=== PATIENT | male | born 1955 | race Caucasian/White ===

== ENCOUNTER → 2024-02-16 07:28 | Outpatient (CLI) | payer MEDICARE, OTHER, SELFPAY ==
[2024-02-16 09:17] LABS: Cholesterol 223 mg/dL (140-199); HDL Cholesterol 46 mg/dL (40-60); LDL Cholesterol Calculated 145 mg/dL (<100); Triglycerides 158 mg/dL (35-150)
== END ==
PROVIDERS: PCP Family Medicine; Referring Provider Family Medicine; Visit Provider Family Medicine
DX: E78.5 Hyperlipidemia, unspecified (principal)
CPT/HCPCS: 36415; 80061

== ENCOUNTER → 2024-04-12 09:04 | Outpatient (CLI) | payer MEDICARE, OTHER, SELFPAY ==
[2024-04-12 11:18] LABS: Alanine Aminotransferase 19 IU/L (<50); Albumin 4.4 g/dL (3.5-5.0); Albumin Globulin Ratio 1.9 (1.0-2.8); Alkaline Phosphatase 56 U/L (38-126); Aspartate Aminotransferase 23 IU/L (17-59); BUN Creatinine Ratio 27.9 (6-22); Bilirubin Total 1.3 mg/dL (0.2-1.3); Blood Urea Nitrogen 36 mg/dL (9-20); Calcium 9.2 mg/dL (8.4-10.2); Carbon Dioxide 28 mmol/L (22-32); Chloride 102 mmol/L (98-107); Cholesterol 199 mg/dL (140-199); Estimated Glomerular Filt Rate 60 mL/min (>60); Globulin 2.3 g/dL (1.7-4.1); Glucose 106 mg/dL (80-110); HDL Cholesterol 45 mg/dL (40-60); HEMOLYSIS < 15 (0-50); LDL Cholesterol Calculated 139 mg/dL (<100); Potassium 4.1 mmol/L (3.4-5.1); Sodium 139 mmol/L (137-145); Total Protein 6.7 g/dL (6.3-8.2); Triglycerides 77 mg/dL (35-150)
== END ==
LOC: LAB 09:06
PROVIDERS: PCP Family Medicine; Referring Provider Family Medicine; Visit Provider Family Medicine
DX: E78.5 Hyperlipidemia, unspecified (principal)
CPT/HCPCS: 36415; 80053; 80061

== ENCOUNTER → 2024-07-18 09:53 | Outpatient (CLI) | payer MEDICARE, OTHER, SELFPAY ==
--- NOTE | 2024-07-18 10:07 | EKG_ITS ---
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
== END ==
PROVIDERS: PCP Family Medicine; Referring Provider Podiatrist; Visit Provider Podiatrist
DX: Z01.818 Encounter for other preprocedural examination (principal)
CPT/HCPCS: 93005

== ENCOUNTER → 2025-01-11 09:21 | Outpatient (CLI) | payer MEDICARE, OTHER, SELFPAY ==
--- NOTE | 2025-01-11 09:22 | DI.RAD.S_ITS ---
PROCEDURE: XR LUMBAR SPINE MIN 4V INDICATIONS: Back pain TECHNIQUE: 5 views of the lumbar spine were acquired, including bilateral oblique views. COMPARISON: None. FINDINGS: Bones: 5 nonrib-bearing vertebrae are present. There is normal bony alignment. No vertebral body compression fractures. No suspicious bony lesions. Diffuse multilevel disc space narrowing with hypertrophic facet joints present particularly in the lower lumbar spine Soft tissues: Overlying bowel gas pattern is normal. No suspicious soft tissue calcifications. Fiducial markers in prostate Oblique images: No pars defects. IMPRESSION: Advanced multilevel degenerative disc disease and arthropathy Approved by: Guzman Sparks M.D. on 01/11/2025 at 10:35
== END ==
PROVIDERS: PCP Family Medicine; Referring Provider Physical Medicine & Rehabilitation; Visit Provider Physical Medicine & Rehabilitation
DX: M51.369 Other intervertebral disc degeneration, lumbar region without mention of lumbar back pain or lower extremity pain (principal); M47.816 Spondylosis without myelopathy or radiculopathy, lumbar region; M79.671 Pain in right foot; M79.672 Pain in left foot
CPT/HCPCS: 72110

== ENCOUNTER 2025-01-11 11:27 | Emergency (ER) | payer MEDICARE, OTHER, SELFPAY ==
[2025-01-11 11:30] VITALS: BP 152/84; PULSE 65; RESP 18; TEMP 37.1; O2SAT 97; BMI 28.8
--- NOTE | 2025-01-11 11:36 | ED.HEATRA ---
HPI - Head Injury General Chief complaint: Head Injury Stated complaint: Hit head a week ago Dizzy Time Seen by Provider: 01/11/25 11:36 Source: patient Mode of arrival: Ambulatory History of Present Illness HPI Narrative: 69-year-old male past medical history of hyperlipidemia, hypertension presenting for dizziness and headache. He states that about a week and a half ago he fell while skiing, states that he did hit his head on the ground but was wearing a helmet, no LOC not on any blood thinners. States that he has been having persistent headache to the right side, also states that he feels dizzy whenever he moves too fast, as well as ?tight/sore neck muscles. But he denies any other symptoms/injuries at this time. Related Data Home Medications Medication Instructions Recorded Confirmed chlorthalidone 25 mg tablet 12.5 mg PO QAM 03/15/24 03/15/24 diltiazem HCl 120 mg 120 mg PO DAILY 03/15/24 03/15/24 capsule,extended release 24 hr (Cartia XT) esomeprazole magnesium 40 mg 40 mg PO DAILY 03/15/24 03/15/24 capsule,delayed release losartan 50 mg tablet 50 mg PO BID 03/15/24 03/15/24 pramipexole 0.5 mg tablet 0.5 mg PO DAILY 03/15/24 03/15/24 rosuvastatin 10 mg tablet 10 mg PO ONCE PM 03/15/24 03/15/24 tamsulosin 0.4 mg capsule 0.4 mg PO DAILY 03/15/24 03/15/24 Previous Rx's Medication Instructions Recorded meclizine 25 mg tablet 25 mg PO BID PRN dizziness 1 week 01/11/25 #14 tabs Allergies Allergy/AdvReac Type Severity Reaction Status Date / Time Sulfa (Sulfonamide Allergy Severe Anaphylaxis Verified 03/15/24 12:48 Antibiotics) Iveojox-TAX-NeQ Reductase Allergy Numbness Verified 01/11/25 11:31 Inhibitor Review of Systems Review of Systems Narrative: General: Denies fever, chills, weight loss HEENT: Denies headache, eye drainage, eye irritation, head trauma, sore throat, voice change Cardiovascular: Denies any chest pain, palpitations, tachycardia Respiratory: Denies any shortness of breath, cough, wheeze, stridor GI/: Denies any abdominal pain, nausea, vomiting, diarrhea, bright red blood per rectum, melanotic stools, urinary frequency, urinary retention, dysuria, hematuria MSK: Denies any joint pain, muscle pains, swelling Skin: Denies any rashes, lesions, discoloration Neuro: Positive headache, dizziness, denies lightheadedness, fainting, weakness Psych: Denies SI/HI Patient History Social History Smoking Status: Never smoker Smoking Status: Never smoker Exam Narrative Exam Narrative: General: Cooperative, well-developed, not in acute distress HEENT: Normocephalic, atraumatic, PERRLA, normal sclera, eyelids normal Neck: Active full range of motion, atraumatic Chest: Normal to inspection, negative crepitus, no overlying erythema ecchymosis Respiratory: Normal respiratory effort, not in acute respiratory distress, clear to auscultation bilaterally negative cough, wheeze, tachypnea, rhonchi, rales Cardiology: Regular rate rhythm negative gallop, murmur, rubs GI/: No tenderness to palpation, soft, non rigid, normal to inspection, exam deferred MSK: Full active range of motion in all 4 extremities, atraumatic, no tenderness to palpation of any bony prominences Skin: No rashes or lesions noted Neuro: NIH of 0 no focal deficits Alert awake oriented x3, moves all 4 extremities spontaneously, cranial nerves intact, able to answer all questions appropriately follows commands appropriately Psych: Cooperative, negative suicidal or homicidal ideations Initial Vital Signs Initial Vital Signs: Vital Signs Temperature 98.7 F 01/11/25 11:30 Pulse Rate 65 01/11/25 11:30 Respiratory Rate 18 01/11/25 11:30 Blood Pressure 152/84 H 01/11/25 11:30 Pulse Oximetry 97 01/11/25 11:30 Oxygen Delivery Method Room Air 01/11/25 11:30 Course Orders Ordered: ED Orders 01/11/25 11:35 CT cervical spine wo con Stat CT head/brain wo con Stat Vital Signs Vital signs: Vital Signs - 8 hr 01/11/25 11:30 Temperature 98.7 F Pulse Rate 65 Respiratory Rate 18 Blood Pressure 152/84 H Pulse Oximetry 97 Oxygen Delivery Method Room Air MDM - Head Injury Differential Diagnosis Differential diagnosis: Likely concussion without loss of consciousness, closed head injury, subarachnoid hematoma, postconcussion syndrome, subdural hematoma and other (Cervical neck strain, cervical neck fracture) Imaging Data CT scan - head: Radiologist's Impression: [address] [address] [address] Scan Report Signed Patient: Ernesto Marrufo MR#: [id number] : 1955 Acct:[id number] Age/Sex: 69 / M Date of Service: 01/11/25 Loc: ED Accession Number: [id number] Procedure: CT head/brain wo con Ordering Provider: Josh Rowley D.O. PROCEDURE: CT HEAD/BRAIN WO CON INDICATIONS: hit head skiing, headache/dizzy TECHNIQUE: Noncontrast 4.5 mm thick angled axial sections acquired from the foramen magnum to the vertex, with coronal and sagittal reformats. For radiation dose reduction, the following was used: automated exposure control, adjustment of mA and/or kV according to patient size. COMPARISON: None. FINDINGS: Image quality: Diagnostic. CSF spaces: Basal cisterns are patent. No extra-axial fluid collections. The ventricles are symmetric in size and shape. Brain: No intracranial bleeds or masses. There is cerebral volume loss for age, with resultant ventricular and sulcal prominence. There are minimal, age-appropriate periventricular and deep white matter chronic small vessel ischemic changes. There is intracranial internal carotid artery atherosclerosis. Skull and face: Calvarium and visualized facial bones appear intact, without suspicious lesions. Sinuses: Visualized sinuses and mastoids are clear. IMPRESSION: No acute intracranial pathology. CT - cervical spine: Radiologist's Impression: [address] [address] [address] Scan Report Signed Patient: Ernesto Marrufo MR#: [id number] : 1955 Acct:[id number] Age/Sex: 69 / M Date of Service: 01/11/25 Loc: ED Accession Number: [id number] Procedure: CT cervical spine wo con Ordering Provider: Josh Rowley D.O. PROCEDURE: CT CERVICAL SPINE WO CON INDICATIONS: hit head skiing, headache/dizzy TECHNIQUE: Noncontrast 3 mm thick sections acquired from the skull base to the T4 level. Sagittal and coronal reformats were then constructed. For radiation dose reduction, the following was used: automated exposure control, adjustment of mA and/or kV according to patient size. COMPARISON: None. FINDINGS: Image quality: Excellent. Bones: No fractures or dislocations. Visualized superior ribs are intact. Cervical spondylosis with disc height loss and uncovertebral joint hypertrophy at C5-C6, C6-C7, and C7-T1. There is bilateral bony foraminal narrowing at these levels. There is canal stenosis at C5-C6 and C6-C7. Soft tissues: Prevertebral soft tissues are normal in thickness. No paravertebral hematomas. No apical pneumothoraces. IMPRESSION: No displaced fracture or traumatic subluxation. Cervical spondylosis. MDM Narrative Medical decision making narrative: 69-year-old male with a history of hypertension, hyperlipidemia, GERD, presenting from home for evaluation of headache dizziness intermittent in nature since a week and a half ago after he fell while skiing. He states that he was wearing his helmet did his his head but denies any LOC not on any blood thinners. Also complaining of soreness/tightness of the right side of his neck. On exam patient is NIH of 0 no focal deficits able to stand bear weight ambulate unassisted, he is neurovascularly intact in bilateral upper and lower extremities. He states that due to persistent/ongoing symptoms decided come into the ED for further evaluation treatment. Patient had CT scan of his head and neck performed here in the emergency department, scans without any acute findings, symptoms more likely concussion like symptoms given head strike, we will send patient home with symptomatic relief, meclizine. Was instructed to follow up with the primary care in outpatient setting, strict return precautions given he verbalized understanding of this and agrees to being discharged home with outpatient follow up Discharge Plan Departure Patient Disposition: Home Clinical Impression: Closed head injury Activity Restrictions/Additional Instructions: Please follow up with primary care doctor Please read the discharge instructions sheet carefully and bring all papers to all doctor follow-up visits, as it may contain information that your doctor may want to see. Disease processes change and evolve, if your symptoms worsen or if you develop any new symptoms that are concerning to you please return for evaluation. Your evaluation today does not show any evidence of any life-threatening/serious illnesses requiring admission to the hospital or surgery. Please follow-up with your doctor for re-evaluation in approximately 1 day. Seek immediate medical attention for any worrisome symptoms. *If you do not have a primary care provider please contact the [facility] Resource line at [phone]. They will ask some questions about your medical history and help get you set up with a doctor in the community. Prescriptions: New meclizine 25 mg tablet 25 mg PO BID PRN (Reason: dizziness) 7 Days Qty: 14 0RF No Action esomeprazole magnesium 40 mg capsule,delayed release(DR/EC) 40 mg PO DAILY rosuvastatin 10 mg tablet 10 mg PO ONCE PM chlorthalidone 25 mg tablet 12.5 mg PO QAM losartan 50 mg tablet 50 mg PO BID diltiazem HCl [Cartia XT] 120 mg capsule,extended release 24hr 120 mg PO DAILY pramipexole 0.5 mg tablet 0.5 mg PO DAILY tamsulosin 0.4 mg capsule 0.4 mg PO DAILY Referrals: Anila Birmingham MD [Primary Care Provider] - Stand Alone Forms: Patient Portal/API/Survey
[2025-01-11 13:03] VITALS: BP 152/94; PULSE 63; RESP 16; TEMP 36.5; O2SAT 97
== END 2025-01-11 13:00 | disposition home or self-care (01) ==
PROVIDERS: Emergency Provider Student in an Organized Health Care Education/Training Program; PCP Family Medicine
DX: S09.8XXA Other specified injuries of head, initial encounter (principal); R42 Dizziness and giddiness; M54.2 Cervicalgia; M51.369 Other intervertebral disc degeneration, lumbar region without mention of lumbar back pain or lower extremity pain; M47.816 Spondylosis without myelopathy or radiculopathy, lumbar region; M79.671 Pain in right foot; M79.672 Pain in left foot; W19.XXXA Unspecified fall, initial encounter; Y93.23 Activity, snow (alpine) (downhill) skiing, snowboarding, sledding, tobogganing and snow tubing
CPT/HCPCS: 70450; 72110; 72125; 99281; 99284

== ENCOUNTER → 2025-01-19 15:45 | Outpatient (CLI) | payer MEDICARE, OTHER, SELFPAY ==
--- NOTE | 2025-01-19 15:47 | DI.MRI.S_ITS ---
PROCEDURE: MR LUMBAR SPINE WO CON INDICATIONS: Lumbar Radic, Bilateral Foot Paresthesias TECHNIQUE: Noncontrast sagittal T1 spin echo and T2 fast echo, sagittal STIR, and T2 fast spin echo through the lumbar spine. In cases with scoliosis, additional coronal T2 fast spin echo may be performed. COMPARISON: [facility], CR, XR LUMBAR SPINE MIN 4V, 01/11/2025, 9:23. FINDINGS: Image quality: Excellent. Alignment and Curvature: There is mild straightening of normal lumbar lordosis. Mild right were curvature of lumbar spine with apex at L2 level is also noted. Bone Marrow: Marrow is of normal overall signal. No acute vertebral body compression fractures. Spinal Cord: Conus medullaris terminates at the L1 level. Visualized cord demonstrates normal signal and size. Paraspinous Soft Tissues: No paravertebral masses. T12-L1: Loss of disc signal and disc height. No significant disc bulge, canal stenosis or neural foraminal narrowing. L1-L2: Loss of disc signal. Mild diffuse disc bulge and bilateral facet arthrosis. No significant central canal stenosis. Mild bilateral neural foraminal narrowing is seen slightly worse on the right side. L2-L3: Loss of disc height and disc signal. Broad-based disc bulge and bilateral facet arthrosis with superimposed right lateral disc herniation causing moderate central canal stenosis, severe right worse than left bilateral neural foraminal narrowing. Bulging disc likely contacting bilateral L2 nerve roots. L3-L4: Near complete loss of disc height and disc desiccation. Broad-based disc bulge and superimposed left lateral disc herniation with bilateral facet arthrosis and hypertrophy of ligamentum flavum causing moderate central canal stenosis and severe left worse than right bilateral neural foraminal narrowing. Bulging disc likely contacting bilateral L3 and L4 nerve roots. L4-L5: Loss of disc height and disc signal. Broad-based disc bulge and bilateral facet arthrosis is seen with [id number] central canal stenosis, severe right-sided neural foraminal narrowing and moderate left-sided neural foraminal narrowing. There is compression of bilateral L4 nerve roots as well as right L5 nerve root. L5-S1: Loss of disc height and disc desiccation. Broad-based disc bulge and bilateral facet arthrosis. No significant central canal stenosis. Mild bilateral neural foraminal narrowing is seen. IMPRESSION: 1. Mild rightward curvature of lumbar spine centered at L2 level. No acute compression fracture or spondylolisthesis. No gross marrow edema. 2. Moderate spondylitic changes throughout lumbar spine causing various degrees of central canal stenosis and bilateral neural foraminal narrowing as described above. 3. No gross paraspinous soft tissue abnormalities. Dictated by: Carmelo Chaudhari M.D. on 01/21/2025 at 19:56 Approved by: Carmelo Chaudhari M.D. on 01/21/2025 at 20:01
== END ==
PROVIDERS: PCP Family Medicine; Referring Provider Physical Medicine & Rehabilitation; Visit Provider Physical Medicine & Rehabilitation
DX: M47.27 Other spondylosis with radiculopathy, lumbosacral region (principal); M47.26 Other spondylosis with radiculopathy, lumbar region; M48.061 Spinal stenosis, lumbar region without neurogenic claudication; M48.07 Spinal stenosis, lumbosacral region; R20.2 Paresthesia of skin
CPT/HCPCS: 72148

== ENCOUNTER → 2025-02-14 12:53 | Outpatient (CLI) | payer MEDICARE, OTHER, SELFPAY ==
--- NOTE | 2025-02-14 12:54 | DI.MRI.S_ITS ---
PROCEDURE: MR KNEE RT WO CON INDICATIONS: internal derangement of right knee TECHNIQUE: Noncontrast sagittal PD fast spin echo and T2 fast spin echo with fat saturation, sagittal 3-D FLASH with fat saturation; coronal T1 spin echo and PD fast spin echo with fat saturation, and axial PD fast spin echo with fat saturation through the knee. COMPARISON: None. FINDINGS: Image quality: Excellent. Menisci: Complex tear involving posterior horn of medial meniscus is seen extending to both superior and inferior articulating surfaces. The lateral meniscus is intact. Cruciate ligaments: Patient is status post prior ACL reconstruction. No signal abnormality is seen within the tibial tunnel or femoral tunnel. ACL graft is intact. The PCL is intact. Medial structures: The medial collateral ligament appears thickened with surrounding soft tissue edema. Visualized portions of the pes anserinus tendons appear normal. No abnormal bursal fluid. Lateral structures: The lateral collateral ligament, long and short heads of the biceps femoris tendon appear intact. The popliteus tendon appears normal. Iliotibial band appears normal. Anterior structures: The quadriceps tendon is intact. Diffusely thickened patellar tendon. No patellar tendon tear. Patellar alignment is normal. Bones and cartilage: Normal right knee alignment without abnormal anterior tibial translation. No bone marrow contusions or fractures. Xigm-[id number] tricompartmental osteoarthritis and chondromalacia is seen. Joint space: There is small knee joint fluid. No Uriostegui's cyst. Normal appearing synovial plicae are incidentally noted. IMPRESSION: 1. Prior ACL reconstruction with postsurgical changes. Anatomic right knee alignment. Mild to moderate tricompartmental osteoarthritis and chondromalacia. No acute fracture or dislocation. Small joint effusion, no loose bodies. 2. Complex tear involving posterior horn of medial meniscus extending to both superior and inferior articulating surfaces. The lateral meniscus is intact. 3. ACL graft is intact. PCL is intact. 4. Patellar tendinosis. Quadriceps tendon is intact. 5. Low-grade MCL sprain/partial-thickness tear. Dictated by: Carmelo Chaudhari M.D. on 02/14/2025 at 14:59 Approved by: Carmelo Chaudhari M.D. on 02/14/2025 at 15:16
== END ==
LOC: MRI 12:54
PROVIDERS: PCP Family Medicine; Referring Provider Orthopaedic Surgery Foot and Ankle Surgery; Visit Provider Orthopaedic Surgery Foot and Ankle Surgery
DX: M23.91 Unspecified internal derangement of right knee (principal); Z98.890 Other specified postprocedural states; M17.11 Unilateral primary osteoarthritis, right knee; M94.261 Chondromalacia, right knee; M25.461 Effusion, right knee; S83.231A Complex tear of medial meniscus, current injury, right knee, initial encounter; S83.411A Sprain of medial collateral ligament of right knee, initial encounter
CPT/HCPCS: 73721

== ENCOUNTER → 2025-04-11 13:05 | Outpatient (CLI) | payer MEDICARE, OTHER, SELFPAY ==
--- NOTE | 2025-04-11 13:06 | DI.MRI.S_ITS ---
PROCEDURE: MR SHOULDER LT WO CON INDICATIONS: Pain in left shoulder TECHNIQUE: Noncontrast oblique coronal T2 fast spin echo with fat saturation, oblique sagittal T1 spin echo and T2 fast spin echo with fat saturation, axial T1 spin echo and T2 fast spin echo with fat saturation through the shoulder. COMPARISON: None. FINDINGS: Image quality: Excellent. Rotator cuff: Low to moderate grade bursal surface partial thickness tear involving distal supraspinatus at its insertion on humeral head extending to musculotendinous junction. Low-grade articular surface partial-thickness tear involving distal infraspinatus at its insertion on the humeral head. Tendinosis and low-grade intrasubstance partial-thickness tear involving distal subscapularis. No full- thickness rotator cuff tendon rupture. Sagittal images demonstrate mild supraspinatus muscle atrophy. Bones and bursae: Marrow edema is seen involving distal clavicle adjacent to acromioclavicular joint. No definite fracture line is seen. Tovc-gw-oaaatany acromioclavicular joint osteoarthritic changes are seen. Small amount of fluid distending acromioclavicular joint capsule is also noted. No other area of abnormal marrow signal. Type 2 acromion without an os acromiale. Small amount of joint effusion and subacromial subdeltoid bursal fluid is seen. No loose bodies. Capsule and soft tissues: There is signal abnormality and fraying involving superior anterior glenoid labrum consistent with superior anterior labral tear. Signal abnormality and fraying involving inferior glenoid labrum is also seen. The long head of the biceps tendon demonstrates normal location and morphology. The rotator interval appears normal, without fibrosis. The coracohumeral ligament is normal in thickness. Incidentally noted is a fat signal structure within teres major muscle measures up to 2.4 x 3.5 x 2.8 cm in size and likely represent intramuscular lipoma. IMPRESSION: 1. Low to moderate grade bursal surface partial-thickness tear involving distal supraspinatus extending to musculotendinous junction. Low-grade articular surface partial-thickness tear involving distal infraspinatus. Low-grade intrasubstance partial-thickness tear involving distal subscapularis. No full-thickness rotator cuff tendon rupture. Mild supraspinatus muscle atrophy. 2. Bony contusion involving distal clavicle and possibly adjacent acromion. No fracture or dislocation. Lyag-jy-ycttesso acromioclavicular joint osteoarthritis. Small to moderate amount of fluid within acromioclavicular joint space. Small amount of subacromial subdeltoid bursal fluid, no loose bodies. 3. Suggestion of superior anterior glenoid labral tear and inferior glenoid labral tear. 4. Incidentally noted of possible intramuscular lipoma within upper portion of teres major muscle as described above. Dictated by: Carmelo Chaudhari M.D. on 04/11/2025 at 15:05 Approved by: Carmelo Chaudhari M.D. on 04/11/2025 at 15:18
== END ==
PROVIDERS: Family Provider Family Medicine; PCP Family Medicine; Referring Provider Orthopaedic Surgery; Visit Provider Orthopaedic Surgery
DX: M75.112 Incomplete rotator cuff tear or rupture of left shoulder, not specified as traumatic (principal); M19.012 Primary osteoarthritis, left shoulder; M25.512 Pain in left shoulder; S40.012A Contusion of left shoulder, initial encounter
CPT/HCPCS: 73221

== ENCOUNTER → 2025-06-22 08:41 | Outpatient (CLI) | payer MEDICARE, OTHER, SELFPAY | LOC: PHYS 08:42 | PROVIDERS: Family Provider Family Medicine; PCP Family Medicine; Referring Provider Physical Medicine & Rehabilitation; Visit Provider Physical Medicine & Rehabilitation | DX: M47.26 Other spondylosis with radiculopathy, lumbar region (principal); R20.2 Paresthesia of skin | CPT/HCPCS: 95886; 95910 ==

== ENCOUNTER 2025-08-31 09:09 | Outpatient (CLI) | payer MEDICARE, OTHER, SELFPAY ==
[2025-08-31] VITALS (7 sets, daily range): BP systolic 128–144; BP diastolic 71–80; PULSE 62–74; RESP 13–20; TEMP 36.4; O2SAT 96–99
[2025-08-31] MEDS: MIDAZOLAM 2 MG/2 ML VIAL IV (10:49)
[2025-08-31] MEDS: BETAMETHASONE 30 MG/5 ML MDV 12 MG INJ (10:56)
[2025-08-31] MEDS: BETAMETHASONE 30 MG/5 ML MDV 6 MG INJ (10:58)
[2025-08-31] MEDS: MIDAZOLAM 2 MG/2 ML VIAL 1 MG IV (11:01)
[2025-08-31] MEDS: LIDOCAINE 1% 20 ML INJ (11:05)
--- NOTE | 2025-08-31 11:13 | PM.PROC.IR.1 ---
Date/Time/Diagnoses Date of procedure: 08/31/25 Time of procedure: 11:13 Pre-procedure diagnosis: 1. FORAMINAL STENOSIS WITH LE SYMPTOMS Procedure Notes Procedure: 1. FLUOROSCOPICALLY GUIDED CONTRAST CONTROLLED TRANSFORAMINAL EPIDURAL STEROID INJECTION - BILATERAL L4/5 TFESI Indications: Ernesto is referred by Dr. Birmingham for treatment of Foraminal Stenosis with bilateral LE Symptoms Physician: Pollo Posada Total Fluoroscopy time (seconds): 12 Total sedation minutes: 19 Complications: none Procedure in detail & Post-procedure care: FINDINGS Foraminal Nerve Root Compression secondary to disc disease and facet hypertrophy DESCRIPTION OF PROCEDURE Following review of allergy and review of potential side effects and complications, including, but not necessarily limited to, infection, allergic reaction, local tissue breakdown, stroke, temporary or permanent nerve injury, paralysis, and possible , the patient indicated that the patient understood and agreed to proceed. An informed consent document was signed by the patient, witnessed by a nurse, and placed in the patient's chart. Additionally, other treatment options including medications, modalities, and physical therapy were reviewed with the patient. After review of previous anaesthesic history and IV conscious sedation the patient was deemed safe to proceed with today?s procedure with IV conscious sedation as ASA class II designation. Safety time-out was performed to confirm patient ID, procedure to be performed and site of procedure. IV sedation was accomplished with a combination of 3mg of Versed was administered by the RN after DO order, titrated to patient comfort during the course of the procedure while the patient remained responsive to all verbal commands In the prone position following sterile prep and drape of the lumbar region, the right L4/5 posterior neuroforamen was identified fluoroscopically. The skin was anesthetized via a 25-gauge 1.5-inch needle with 1% lidocaine solution. At this point, a 25-gauge 3.5-inch spinal needle was atraumatically introduced and advanced under fluoroscopic guidance through the posterior right L4/5 neuroforamen to approximately the anterior aspect of the canal. Depth was confirmed on lateral view. Following negative aspiration, injection of approximately 1.5cc of Isovue 200 under live fluoroscopy in the AP view confirmed excellent flow along the nerve root, into the epidural space without vascular or intrathecal uptake observed Radiological data, including multiple fluoroscopic views of the lumbosacral spine, reveal a spinal needle at the right L4/5 posterior neuroforamen. Subsequent views show flow of contrast material flowing superiorly and inferiorly along the nerve root confirming epidural flow. Subsequently, a test dose of 1.5cc of 1% lidocaine solution was administered and patient was observed for two minutes for signs or symptoms of complications, including abdominal pain, shortness of breath, bilateral upper or lower extremity weakness, nausea and vomiting, prior to steroid injection. At this point, a total of 2cc or 10mg of dexamethasone and 6mg betamethasone was injected without incident. Attention was then refocused to the left L4/5 level where the identical procedure was replicated. The procedure tolerated the procedure well without signs or symptoms of complications prior to transfer to the recovery area continued monitoring without incident. The patient was then transferred to the recovery area where they were observed for an appropriate time after the injection. The patient reported a VAS score of 7 prior to the procedure and a post-procedure VAS of 0. POST OP INSTRUCTIONS The patient was provided a Pain Log to continue to record their response to the target-specific procedure prior to follow-up visit with their referring physician. Additionally, specific post-injection care instructions and a contact number to our office were provided if concerns arise regarding possible complications associated with the procedure are suspected.
== END 2025-08-31 12:16 | disposition home or self-care (01) ==
LOC: RAD 09:10
PROVIDERS: Family Provider Family Medicine; PCP Family Medicine; Referring Provider Physical Medicine & Rehabilitation; Visit Provider Physical Medicine & Rehabilitation
DX: M48.061 Spinal stenosis, lumbar region without neurogenic claudication (principal); M51.16 Intervertebral disc disorders with radiculopathy, lumbar region; M47.26 Other spondylosis with radiculopathy, lumbar region
CPT/HCPCS: 64483; 99152; 99153; J0702; J1100; J2250